=== PATIENT | male | born 1990 | race Two or more races ===

== ENCOUNTER → 2020-10-03 | Emergency (ER) | payer OTHER ==
[~2020-10-03] VITALS: Ht 167.6 cm; Wt 56.7 kg
--- NOTE | 2020-10-03 09:10 | NUR ---
the patient BIB for c/o anxiety. patient is alert and oriented x4. denies pain. in room air and denies sob. respiration regular and unlabored. amalia continue to monitor
--- NOTE | 2020-10-03 09:15 | NUR ---
AUNDREA COOPER at the bedside.
--- NOTE | 2020-10-03 09:47 | NUR ---
the patient is in bed. Calm and cooperative.
--- NOTE | 2020-10-03 09:48 | NUR ---
Waiting for covid antigen swab to be delivered.
[2020-10-03 10:11] VITALS: BP 133/76
--- NOTE | 2020-10-03 10:12 | NUR ---
Patient discharged in stable condition. Written and verbal after care instructions given. Patient verbalizes understanding of instruction. Patient left ER in stable condition.
== END | disposition home or self-care (01) ==
LOC: ER 09:08
DX: F41.9 Anxiety disorder, unspecified (principal); Z20.822 Contact with and (suspected) exposure to COVID-19
CPT/HCPCS: 87426; 99283; C9803

== ENCOUNTER 2021-10-02 00:14 | Emergency (ER) | payer OTHER ==
[~2021-10-02] VITALS: Ht 170.2 cm; Wt 64.9 kg
[2021-10-02 00:25] VITALS: BP 126/78
[2021-10-02] MEDS ORDERED: IBUPROFEN 600 MG TABLET ONE (00:33)
[2021-10-02] MEDS ORDERED: IBUP-1957 PO (00:40)
[2021-10-02] MEDS ORDERED: IBUPROFEN 600 MG TABLET PO ONE (01:00)
--- NOTE | 2021-10-02 01:07 | NUR ---
Patient discharged to home in stable condition. Written and verbal after care instructions given. Patient verbalizes understanding of instruction.
== END 2021-10-02 01:13 | disposition home or self-care (01) ==
LOC: ER 00:16
DX: G56.01 Carpal tunnel syndrome, right upper limb (principal); M25.531 Pain in right wrist; F41.9 Anxiety disorder, unspecified

== ENCOUNTER 2024-08-07 18:12 | Emergency (ER) | payer OTHER ==
[~2024-08-07] VITALS: Ht 167.6 cm; Wt 68.0 kg
[~2024-08-07 18:12] MED LIST: IBUP-1957 PO
[2024-08-07] MEDS ORDERED: TDAP [DIPH/PERTUSSIS/TET] 0.5 ML VIAL IM ONE (20:54)
[2024-08-07] MEDS ORDERED: ACETAMINOPHEN ES 500 MG TABLET ONE (20:55)
[2024-08-07] MEDS: TDAP [DIPH/PERTUSSIS/TET] 0.5 ML VIAL IM ONE (21:07)
[2024-08-07] MEDS: ACETAMINOPHEN ES 500 MG TABLET PO ONE (21:07)
[2024-08-07 21:46] VITALS: BP 108/70; TEMP 98; O2SAT 100
== END 2024-08-07 21:47 | disposition home or self-care (01) ==
LOC: ER 18:21
DX: S01.81XA Laceration without foreign body of other part of head, initial encounter (principal); R51.9 Headache, unspecified; F12.90 Cannabis use, unspecified, uncomplicated; R11.2 Nausea with vomiting, unspecified; Z79.1 Long term (current) use of non-steroidal anti-inflammatories (NSAID); Y04.2XXA Assault by strike against or bumped into by another person, initial encounter; Y93.89 Activity, other specified; Y92.89 Other specified places as the place of occurrence of the external cause; Y99.8 Other external cause status
CPT/HCPCS: 99283; 90471; 90715; A6403

== ENCOUNTER 2024-08-08 07:47 | Emergency (ER) | payer OTHER ==
[~2024-08-08] VITALS: Ht 162.6 cm; Wt 68.0 kg
[2024-08-08 08:37] VITALS: BP 124/56; TEMP 97.9
[2024-08-08 09:37] VITALS: O2SAT 99
== END 2024-08-08 09:37 | disposition home or self-care (01) ==
LOC: ER 07:47
DX: S60.221A Contusion of right hand, initial encounter (principal); M79.644 Pain in right finger(s); F12.90 Cannabis use, unspecified, uncomplicated; Z79.1 Long term (current) use of non-steroidal anti-inflammatories (NSAID); Y04.0XXA Assault by unarmed brawl or fight, initial encounter; Y93.89 Activity, other specified; Y92.89 Other specified places as the place of occurrence of the external cause; Y99.8 Other external cause status
CPT/HCPCS: 73130-TC